=== PATIENT | female | born 1990 | race Caucasian/White ===

== ENCOUNTER 2018-02-13 15:08 | Emergency (ER) | payer OTHER ==
--- NOTE | 2018-02-13 15:55 | ER Document Report ---
ED Medical Screen (RME) - General Chief Complaint: Ear Pain Stated Complaint: EAR PAIN Time Seen by Provider: 02/13/18 15:35 Mode of Arrival: Ambulatory Information source: Patient Notes: 27-year-old female with no reported past medical history presents with multiple complaints including facial pain, ear pain, facial tingling, rhinorrhea, dizziness, neck and tooth pain, myalgias. Patient has been seen several times by her physician and recently completed a prescription for amoxicillin yesterday. She has been checked for strep and mono which she reports to be negative. Patient denies any fever, chills. She denies any known tick bites, rash. She does not believe she is . I have greeted and performed a rapid initial assessment of this patient. A comprehensive ED assessment and evaluation of the patient, analysis of test results and completion of medical decision making process we will be contacted by additional ED providers. PHYSICAL EXAMINATION: GENERAL: Well-appearing, well-nourished and in no acute distress. HEAD: Atraumatic, normocephalic. EYES: Pupils equal round extraocular movements intact, conjunctiva are normal. ENT: Nares patent. TMs clear bilaterally. No tonsillar exudates or erythema NECK: Normal range of motion. No appreciated lymphadenopathy LUNGS: No respiratory distress Musculoskeletal: Normal range of motion NEUROLOGICAL: Normal speech, normal gait. PSYCH: Normal mood, normal affect. SKIN: Warm, Dry, normal turgor, no rashes or lesions noted. TRAVEL OUTSIDE OF THE [place] IN LAST 30 DAYS: No - HPI Onset: Other Onset/Duration: Gradual, Persistent, Worse Quality of pain: Fullness, Pressure Severity: Mild Associated Symptoms: Body/muscle aches, Earache, Headache Exacerbated by: Denies Relieved by: Denies Similar symptoms previously: Yes Recently seen / treated by doctor: Yes - 02/03/18 - Related Data Smoking: Non-smoker Frequency of alcohol use: None Drug Abuse: None Allergies/Adverse Reactions: No Known Allergies Allergy (Verified 02/13/18 15:44) Past Medical History - Social History Chew tobacco use (# tins/day): No Frequency of alcohol use: Occasional Drug Abuse: None Renal/ Medical History: Denies: Hx Peritoneal Dialysis Physical Exam - Vital signs Vitals: Temp Pulse Resp BP Pulse Ox 98.1 F 84 18 126/93 H 100 02/13/18 15:23 02/13/18 15:23 02/13/18 15:23 02/13/18 15:23 02/13/18 15:23 Course - Vital Signs Vital signs: Temp Pulse Resp BP Pulse Ox 98.1 F 84 18 126/93 H 100 02/13/18 15:23 02/13/18 15:23 02/13/18 15:23 02/13/18 15:23 02/13/18 15:23 Doctor's Discharge - Discharge Referrals: MARLON UMANA MD [Primary Care Provider] - Follow up as needed
[2018-02-13 16:48] LABS: ABSOLUTE BASOPHILS # (AUTO) 0.1 10^3/uL (0.0-0.2); ABSOLUTE EOSINOPHILS # (AUTO) 0.1 10^3/uL (0.0-0.6); ABSOLUTE LYMPHOCYTES (AUTO) 2.1 10^3/uL (0.5-4.7); ABSOLUTE MONOCYTES (AUTO) 0.7 10^3/uL (0.1-1.4); BASOPHILS % (AUTO) 0.7 % (0-2); EOSINOPHILS % (AUTO) 0.6 % (0-6); HEMATOCRIT 46.5 % (36.0-47.0); HEMOGLOBIN 15.5 g/dL (12.0-15.5); LYMPHOCYTES % (AUTO) 23.6 % (13-45); MEAN CORPUSCULAR HEMOGLOBIN 30.7 pg (27.0-33.4); MEAN CORPUSCULAR HGB CONC 33.4 g/dL (32.0-36.0); MEAN CORPUSCULAR VOLUME 92 fl (80-97); PLATELET COUNT 296 10^3/uL (150-450); RED BLOOD COUNT 5.05 10^6/uL (3.72-5.28); RED CELL DISTRIBUTION WIDTH 13.1 % (11.5-14.0); SEGMENTED NEUTROPHILS % (AUTO) 67.1 % (42-78); TOTAL CELLS COUNTED % (AUTO) 100 %
[2018-02-13 16:59] LABS: APPEARANCE,URINE CLEAR; BILIRUBIN,URINE NEGATIVE (NEGATIVE); COLOR,URINE STRAW; GLUCOSE, URINE NEGATIVE (NEGATIVE); KETONES,URINE NEGATIVE (NEGATIVE); LEUKOCYTE ESTERASE,URINE NEGATIVE (NEGATIVE); NITRITE,URINE NEGATIVE (NEGATIVE); PROTEIN,URINE NEGATIVE (NEGATIVE); URINE SPECIFIC GRAVITY 1.005; UROBILINOGEN,URINE NEGATIVE mg/dL (<2.0)
[2018-02-13 17:06] LABS: ALANINE AMINOTRANSFERASE 28 U/L (9-52); ALBUMIN 4.7 g/dL (3.5-5.0); ALKALINE PHOSPHATASE 61 U/L (38-126); ANION GAP 15 (5-19); ASPARTATE AMINO TRANSFERASE 22 U/L (14-36); BILIRUBIN,DIRECT 0.2 mg/dL (0.0-0.4); BILIRUBIN,TOTAL 0.4 mg/dL (0.2-1.3); BLOOD UREA NITROGEN 8 mg/dL (7-20); CALCIUM 9.7 mg/dL (8.4-10.2); CARBON DIOXIDE 26 mmol/L (22-30); CHLORIDE 103 mmol/L (98-107); GLUCOSE 97 mg/dL (75-110); POTASSIUM 4.2 mmol/L (3.6-5.0); TOTAL PROTEIN 7.8 g/dL (6.3-8.2)
--- NOTE | 2018-02-13 17:25 | ER Document Report ---
ED ENT - General Mode of Arrival: Ambulatory Information source: Patient, Relative - TRAVEL OUTSIDE OF THE [place] IN LAST 30 DAYS: No <ALY MARTIN - Last Filed: 02/13/18 21:52> <GILBERTO YOST - Last Filed: 02/18/18 14:44> - General Chief Complaint: Ear Pain Stated Complaint: EAR PAIN Time Seen by Provider: 02/13/18 15:35 Notes: 27 y.o female presents to the ED with LT ear pain. Pt states that about 3 weeks ago she initially had ulcers in her mouth that have since cleared, she also complains of an intermittent metallic/salty taste to her mouth. She states that after the ulcers had cleared she was having pressure to her sinuses and pressure and pain to her LT ear. She reports that she has seen the doctor 3 times concerning her ear pain since onset and that she has been on antibiotics for the past 10 days without relief and has tried Azelastine and Zyrtec without any relief. She describes her ear discomfort as a "full" feeling and reports a slight loss of hearing to her LT ear. She also complains of worsening sx with movement, stating that she will be fine in the morning before getting up and that she will feel dizzy with movement. Pt notes some intermittent tingling to her LT hand and LT facial cheek. She denies any fever. Pt later notes that she had a surgery behinf her ear in the past and that her ear has "not felt the same since". She denies any other medical issues. ( ALY MARTIN) - Related Data Allergies/Adverse Reactions: No Known Allergies Allergy (Verified 02/13/18 15:44) Past Medical History - General Information source: Patient - Social History Smoking Status: Never Smoker Chew tobacco use (# tins/day): No Frequency of alcohol use: Occasional Drug Abuse: None Family History: Reviewed & Not Pertinent Patient has suicidal ideation: No Patient has homicidal ideation: No Renal/ Medical History: Denies: Hx Peritoneal Dialysis <ALY MARTIN - Last Filed: 02/13/18 21:52> Review of Systems - Review of Systems Constitutional: See HPI, Other - dizziness. denies: Fever EENT: See HPI, Ear pain - and loss of hearing, feels "full", Sinus pressure, Other - ulcers to her mouth, metallic taste to mouth. denies: Sinus discharge Cardiovascular: No symptoms reported Respiratory: No symptoms reported Gastrointestinal: No symptoms reported Genitourinary: No symptoms reported Female Genitourinary: No symptoms reported Musculoskeletal: No symptoms reported Skin: See HPI. denies: Rash Hematologic/Lymphatic: No symptoms reported Neurological/Psychological: See HPI, Tingling - LT hand and LT facial cheek -: Yes All other systems reviewed and negative <ALY MARTIN - Last Filed: 02/13/18 21:52> Physical Exam <ALY MARTIN - Last Filed: 02/13/18 21:52> <GILBERTO YOST - Last Filed: 02/18/18 14:44> - Vital signs Vitals: Temp Pulse Resp BP Pulse Ox 98.1 F 84 18 126/93 H 100 02/13/18 15:23 02/13/18 15:23 02/13/18 15:23 02/13/18 15:23 02/13/18 15:23 - Notes Notes: Physical Exam: General: Alert, appears well. HEENT: Normocephalic. Atraumatic. PERRL. Extraocular movements intact. No nystagmus. Oropharynx clear. Some fluid behind the LT TM, no sign of infection. No erythema or bulging behind ear suggesting mastoiditis. No lymphadenopathy. Neck: Supple. Non-tender. Respiratory: No respiratory distress. Clear and equal breath sounds bilaterally. Cardiovascular: Regular rate and rhythm. Abdominal: Normal Inspection. Non-tender. No distension. Normal Bowel Sounds. Back: Non-tender. No deformity or step off. Extremities: Moves all four extremities. Upper extremities: Normal inspection. Normal ROM. Lower extremities: Normal inspection. No edema. Normal ROM. Neurological: Normal cognition. AAOx3. Normal speech. Cranial nerves grossly intact. Finger to nose test normal bilaterally. Psychological: Normal affect. Normal Mood. Skin: Warm. Dry. Normal color. (ALY MARTIN) Course - Laboratory Result Diagrams: 02/13/18 16:25 02/13/18 16:25 <ALY MARTIN - Last Filed: 02/13/18 21:52> - Laboratory Result Diagrams: 02/13/18 16:25 02/13/18 16:25 <GILBERTO YOST - Last Filed: 02/18/18 14:44> - Re-evaluation Re-evalutation: 02/13/18 17:31 Patient's labs within normal limits are nonsignificant. Exam reveals mild amount of clear fluid behind left tympanic membrane was no signs of mastoiditis on exam. She is neurologically intact. She states her symptoms have been going on for several weeks it is worse after she wakes up and worse with head turning and movement and better with sitting still. Her symptoms are consistent with peripheral vertigo. She states that she feels that her sinuses are full and she also has decreased subjective hearing in the left. She was put on 10 days of antibiotics by primary care which has not helped her symptoms. She is also used azelastine which has not helped. We will refer to Dr. Hager, ENT specialist, for further evaluation. 02/13/18 17:43 Instructed patient she would be called if any of her other tests are positive regarding Lyme (GILBERTO YOST) - Vital Signs Vital signs: Temp Pulse Resp BP Pulse Ox 97.8 F 80 16 121/84 99 02/13/18 17:54 02/13/18 17:54 02/13/18 17:54 02/13/18 17:54 02/13/18 17:54 - Laboratory Laboratory results interpreted by me: 02/13/18 16:25 Rickettsia IgM Ab 0.91 H Discharge <ALY MARTIN - Last Filed: 02/13/18 21:52> <GILBERTO YOST - Last Filed: 02/18/18 14:44> - Discharge Clinical Impression: Vertigo, Sinus congestion Condition: Good Disposition: HOME, SELF-CARE Instructions: Vertigo ([facility]) Prescriptions: Fluticasone Propionate 9.9 ml NS ASDIR PRN #1 bottle PRN Reason: Meclizine HCl 25 mg PO TID PRN #30 tab.chew PRN Reason: Ondansetron [Zofran Odt] 4 mg PO TID PRN #15 tab.rapdis PRN Reason: Referrals: GILBERTO KAY DO [ASSOCIATE] - Follow up in 3-5 days Scribe Attestation: 02/18/18 14:43 I personally performed the services described in the documentation, reviewed and edited the documentation which was dictated to the scribe in my presence, and it accurately records my words and actions. (GILBERTO YOST) Scribe Documentation - Scribe Written by Alex:: Alex Arellano 02/13/18 1724 acting as scribe for :: Santana <ALY MARITN - Last Filed: 02/13/18 21:52>
[2018-02-13 17:57] VITALS: BP 121/84
[2018-02-16 07:34] LABS: LYME DISEASE IGM AB <0.80 index (0.00-0.79); ROCKY MTN SPOTTED FEVER IGM AB 0.91 index (0.00-0.89)
[2018-02-17 08:08] LABS: ROCKY MTN SPOTTED FEV IGG EIA Positive (Negative); ROCKY MTN SPOTTED FEV IGG IFA <1:64 (Neg <1:64)
== END 2018-02-13 17:55 | disposition home or self-care (01) ==
LOC: ER 15:08
DX: R42 Dizziness and giddiness (principal); R09.81 Nasal congestion; H92.02 Otalgia, left ear; R20.0 Anesthesia of skin
CPT/HCPCS: 36415; 80053; 81001; 81025; 85025; 86617; 86618; 86757; 99283